=== PATIENT | female | born 1990 | race Caucasian/White ===

== ENCOUNTER 2020-12-12 11:23 | Outpatient (CLI) | payer OTHER ==
--- NOTE | 2020-12-12 13:26 | Mammography Report ---
BILATERAL DIGITAL DIAGNOSTIC MAMMOGRAM WITH CAD , 12/12/2020 BILATERAL COMPLETE BREAST ULTRASOUND CLINICAL INFORMATION / INDICATION: Patient is complaining of bilateral bloody nipple discharge, bilat eral breast pain, and bilateral skin changes. Patient also states mother was diagnosed with breast ca ncer at the age of 23. PAIN, DISCHARGE, SKIN CHANGE TECHNIQUE: Digital mammographic imaging was performed. Complete ultrasound of all four (4) quadrants was performed. This examination was interpreted with the benefit of Computer-Aided Detection (CAD) an alysis. COMPARISON: None This is the patient's first mammogram. FINDINGS: Breast Density: The breasts are almost entirely fatty. MAMMOGRAPHIC FINDINGS: No dominant mass, suspicious calcifications, or architectural distortion in ei ther breast. ULTRASOUND FINDINGS: Complete sonographic evaluation of all 4 quadrants and retroareolar region was p erformed. Right breast: No sonographic abnormalities are identified in the right breast. No mass, cyst, or susp icious shadowing is noted. Left breast: No sonographic abnormalities are identified in the left breast. No mass, cyst, or suspic ious shadowing is noted. IMPRESSION: No mammographic or sonographic evidence of malignancy. There is no mammographic or sonogr aphic correlate to account for the multiple clinical symptoms. Please correlate clinically for clinic al symptoms of bilateral bloody nipple discharge. Follow up recommendation: Routine yearly Due to patient's family history of a mother with premenopausal breast cancer, annual screening mammog darren is recommended. BI-RADS Category 2: Benign. A "normal" or negative report should not discourage follow up or biopsy of a clinically significant f inding. A written summary of these findings will be mailed to the patient. The patient will be entered into a mammography reporting system which will generate a reminder letter for the patient's next appointmen t at the appropriate interval. According to the [employer], yearly mammograms are recommended starting at age 40 and continuing as long as a woman is in good health. Breast MRI is recommended for women with an nadine roximately 20-25% or greater lifetime risk of breast cancer, including women with a strong family his tory of breast or ovarian cancer and women who have been treated for Hodgkin's disease. Signer Name: Echo Morton MD Signed: 12/12/2020 1:21 PM Workstation Name: [id number]
== END 2020-12-12 11:24 | disposition home or self-care (01) ==
LOC: US 11:23
PROVIDERS: ATTEND Specialist
DX: N64.4 Mastodynia (principal); R92.8 Other abnormal and inconclusive findings on diagnostic imaging of breast
CPT/HCPCS: 77066